=== PATIENT | male | born 1955 | race Caucasian/White ===

== ENCOUNTER 2018-10-18 09:00 | Day surgery (SDC) | payer OTHER ==
[~2018-10-18 09:00] MED LIST: EPHEDrine 50 MG INJ; GLYCOPYRROLATE 0.4 MG INJ; NEOSTIGMINE 3 MG/3 ML SYRINGE; PROPOFOL 200 MG INJ
[2018-10-18 12:16] LABS: ADD MAN DIFF? NO
[2018-10-18 12:27] LABS: BASOPHIL # 0.1 10^3/ul (0.0-0.1); BASOPHILS % 0.8 % (0.0-2.0); EOSINOPHILS # 0.2 10^3/ul (0.0-0.5); EOSINOPHILS % 1.6 % (0.0-7.0); HEMATOCRIT 46.1 % (42.0-52.0); HEMOGLOBIN 14.5 g/dl (14.0-18.0); LYMPHOCYTES # 1.6 10^3/ul (0.8-2.9); LYMPHOCYTES % 17.6 % (15.0-51.0); MEAN CORPUSCULAR HEMOGLOBIN 26.4 pg (29.0-33.0); MEAN CORPUSCULAR HGB CONC 31.5 g/dl (32.0-37.0); MEAN CORPUSCULAR VOLUME 83.8 fl (82.0-101.0); MEAN PLATELET VOLUME 9.8 fl (7.4-10.4); MONOCYTES % 10.3 % (0.0-11.0); NEUTROPHIL # 6.4 10^3/ul (1.6-7.5); NEUTROPHILS % 69.5 % (39.0-77.0); PLATELET COUNT 278 10^3/UL (140-415); RED CELL DISTRIBUTION WIDTH 13.4 % (11.5-14.5)
[2018-10-18 12:27] LABS: WHITE BLOOD COUNT 9.2 10^3/ul (4.8-10.8)
[2018-10-18] MEDS: ACETAMINOPHEN 500 MG TAB PO (12:32)
[2018-10-18] MEDS: SOD CHLORIDE 0.9% 1,000 ML IV (12:32)
[2018-10-18 12:40] LABS: INR 1.14; PARTIAL THROMBOPLASTIN TIME 27.1 Sec (23.0-35.0); PROTIME 14.7 Sec (11.9-14.9); PT RATIO 1.1
[2018-10-18 12:47] LABS: ALANINE AMINOTRANSFERASE 38 IU/L (13-69); ALBUMIN 4.6 g/dl (3.3-4.9); ALBUMIN/GLOBULIN RATIO 1.58; ALKALINE PHOSPHATASE 104 IU/L (42-121); ANION GAP 11 (5-13); ASPARTATE AMINO TRANSFERASE 28 IU/L (15-46); BILIRUBIN,INDIRECT 0.4 mg/dl (0-1.1); BILIRUBIN,TOTAL 0.4 mg/dl (0.2-1.3); CARBON DIOXIDE 31 mmol/L (21-31); CHLORIDE 102 mmol/L (97-110); CREATININE 0.96 mg/dl (0.61-1.24); Estimated GFR > 60 mL/min (>60); GLUCOSE 89 mg/dl (70-220); SODIUM 144 mmol/L (135-144); TOTAL PROTEIN 7.5 g/dl (6.1-8.1)
[2018-10-18 12:53] LABS: BLOOD UREA NITROGEN 22 mg/dl (7-20); CALCIUM 10.3 mg/dl (8.4-10.2)
[2018-10-18] MEDS ORDERED: HYDROmorphONE 1 MG/5 ML IV SYRINGE IV ×3 (13:30)
[2018-10-18] MEDS ORDERED: LABETALOL HCL 20MG INJ IV (13:30)
[2018-10-18] MEDS ORDERED: OXYCODONE/ACETAMINOPHEN (5/325) TAB PO ×2 (13:30)
[2018-10-18] MEDS ORDERED: DIPHENHYDRAMINE 50 MG INJ IV (13:30)
[2018-10-18] MEDS ORDERED: MEPERIDINE 25 MG INJ IV (13:30)
[2018-10-18] MEDS ORDERED: ALBUTEROL 0.083% (NEB) 2.5 MG/3 ML AMP HHN (13:30)
[2018-10-18] MEDS ORDERED: ONDANSETRON 4 MG INJ IV (13:30)
[2018-10-18] MEDS ORDERED: morphine (1 MG/ML) 10ML SYRINGE IV ×2 (13:30)
[2018-10-18] MEDS ORDERED: FENTAnyl 50 MCG/ML VIAL IV ×2 (13:30)
[2018-10-18] MEDS ORDERED: MIDAZOLAM 1 MG/ML 2 ML INJ (13:31)
[2018-10-18] MEDS ORDERED: LIDOCAINE 2% (SDV) 5 ML INJ (13:31)
[2018-10-18] MEDS ORDERED: KETAMINE (50 MG/ML) 10 ML VIAL (13:32)
[2018-10-18] MEDS ORDERED: ROCURONIUM 50 MG INJ (13:32)
[2018-10-18] MEDS ORDERED: GLYCOPYRROLATE 0.4 MG INJ (13:33)
[2018-10-18] MEDS ORDERED: CEFAZOLIN 1 GM INJ (13:33)
[2018-10-18] MEDS ORDERED: FAMOTIDINE 20 MG INJ (13:34)
[2018-10-18] MEDS ORDERED: ONDANSETRON 4 MG INJ (13:34)
[2018-10-18] MEDS: CEFAZOLIN 2 GM/50 ML (PMX) 50 ML IVPB (13:54)
[2018-10-18] MEDS ORDERED: KETOROLAC 30 MG INJ (14:26)
[2018-10-18] MEDS ORDERED: BUPIVACAINE 0.5%/EPI (SDV) 30 ML INJ (14:27)
[2018-10-18] MEDS ORDERED: traMADol 50 MG TAB PO (14:30)
== END 2018-10-18 16:18 | disposition home or self-care (01) ==
LOC: SDS 09:00
DX: C85.11 Unspecified B-cell lymphoma, lymph nodes of head, face, and neck (principal)
CPT/HCPCS: 11642; 71045; 80053; 85025; 85610; 85730; 88307; 88313; 93005